=== PATIENT | female | born 1940 | race African-American/Black ===

== ENCOUNTER 2019-07-13 19:44 | Inpatient (IN) | payer MEDICAID, OTHER ==
[~2019-07-13] VITALS: Ht 162.6 cm; Wt 81.6 kg
[2019-07-13 20:36] LABS: BASOPHILS % 0.6 % (0.0-2.0); EOSINOPHILS % 4.1 % (0.0-5.0); HEMATOCRIT. 42.3 % (36.0-48.0); HEMOGLOBIN. 13.8 g/dL (12.0-16.0); LYMPHOCYTES % 36.7 % (20.0-50.0); MEAN CORPUSCULAR HEMOGLOBIN 27.5 pg (28.0-32.0); MEAN CORPUSCULAR VOLUME 84.1 fL (81.0-99.0); MEAN PLATELET VOLUME 9.2 fl (7.4-10.4); MONOCYTES % 6.5 % (2.0-8.0); NEUTROPHILS % 52.1 % (40.0-76.0); PLATELET 181 x1000/uL (130-400); RED BLOOD CELL COUNT 5.02 mill/uL (4.2-5.4); RED CELL DISTRIBUTION WIDTH 15.4 % (11.6-14.6)
[2019-07-13 20:39] LABS: CHLORIDE 107 mEq/L (98-107); PROTHROMBIN TIME 10.6 sec (9.6-11.0)
[2019-07-13 20:47] LABS: CLARITY URINE CLEAR (CLEAR); COLOR URINE YELLOW (YELLOW); KETONES URINE NEGATIVE (NEGATIVE); LEUKOCYTE ESTERASE URINE TRACE (NEGATIVE); NITRITE URINE NEGATIVE (NEGATIVE); OCCULT BLOOD URINE NEGATIVE (NEGATIVE); PH URINE 6.5 (4.5-8.0); PROTEIN URINE TRACE (NEGATIVE); SPECIFIC GRAVITY URINE 1.009 (1.005-1.030); UROBILINOGEN URINE 0.2 E.U./dL (0.2-1.0)
[2019-07-13 21:01] LABS: *AMPHETAMINES SCREEN URINE NEGATIVE (NEGATIVE); *BARBITURATES SCREEN URINE NEGATIVE (NEGATIVE); *BENZODIAZEPINES SCREEN URINE NEGATIVE (NEGATIVE); *COCAINE SCREEN URINE NEGATIVE (NEGATIVE); METHADONE URINE SCREEN NEGATIVE (NEGATIVE)
[2019-07-13 21:02] LABS: CANNABINOID URINE SCREEN NEGATIVE (NEGATIVE); OPIATES URINE SCREEN NEGATIVE (NEGATIVE); PHENCYCLIDINE URINE SCREEN NEGATIVE (NEGATIVE)
[2019-07-13] MEDS ORDERED: ENOXAPARIN 100MG/ML SYR SUBCUT ONE (22:15)
[2019-07-13] MEDS ORDERED: POTASSIUM CHLORIDE 20MEQ TABLET SR PO ONE (22:15)
[2019-07-13] MEDS ORDERED: ASPIRIN 81MG TABLET PO ONE (22:15)
[2019-07-14 09:15] VITALS: BP 136/73
[2019-07-14 10:43] VITALS: BP 136/79
[2019-07-14 12:00] VITALS: BP 126/53
[2019-07-14] MEDS ORDERED: LISINOPRIL 20MG TABLET PO SCH ×2 (12:00→15:00)
[2019-07-14] MEDS ORDERED: AMLODIPINE 5MG TABLET PO SCH ×3 (12:00→15:00)
[2019-07-14] MEDS ORDERED: CLONIDINE 0.1MG TABLET PO PRN (13:00)
[2019-07-14] MEDS ORDERED: IPRATROPIUM/ALBUTEROL 0.5-3(2.5)MG/3ML NEB NEB PRN (13:00)
[2019-07-14] MEDS ORDERED: ACETAMINOPHEN 650MG SUPP PR PRN (13:00)
[2019-07-14] MEDS ORDERED: MAGNESIUM/ALUMINUM HYDROXIDE/SIMETHICONE 30ML UDC PO PRN (13:00)
[2019-07-14] MEDS ORDERED: ACETAMINOPHEN 325MG TABLET PO PRN (13:00)
[2019-07-14] MEDS ORDERED: ONDANSETRON HCL 4MG/2ML INJ IV PRN (13:00)
[2019-07-14] MEDS ORDERED: HYDROCODONE/ACETAMINOPHEN 5/325MG TABLET PO PRN (13:00)
[2019-07-14] MEDS ORDERED: DIPHENHYDRAMINE 50MG/ML VIAL IV PRN (13:00)
[2019-07-14] MEDS ORDERED: NA PHOS,M-B/NA PHOS,DI-BA ENEMA 118ML PR PRN (13:00)
[2019-07-14] MEDS ORDERED: DOCUSATE SODIUM 100MG CAPSULE PO PRN (13:00)
[2019-07-14] MEDS ORDERED: LORAZEPAM 0.5MG TABLET PO PRN (13:00)
[2019-07-14] MEDS ORDERED: GUAIFENESIN 200MG/10ML SUGAR FREE UDC PO PRN (13:00)
[2019-07-14] MEDS ORDERED: POTASSIUM CHLORIDE 20MEQ TABLET SR PO SCH (13:45)
[2019-07-14] MEDS ORDERED: POTASSIUM CHLORIDE 20MEQ TABLET SR PO NR (14:30)
[2019-07-14 16:00] VITALS: BP 115/64
[2019-07-14] MEDS: LISINOPRIL 20MG TABLET PO SCH (16:07)
[2019-07-14] MEDS ORDERED: LISI-652 MT (17:18)
[2019-07-14] MEDS ORDERED: LIP40 MT (17:19)
[2019-07-14] MEDS ORDERED: AMLO5TAB4 MT (17:20)
[2019-07-14 17:44] LABS: CREATINE KINASE 270 IU/L (26-192)
[2019-07-14 17:45] LABS: CREATINE KINASE MB FRACTION 1.9 ng/mL (0.5-3.6)
[2019-07-14] MEDS: POTASSIUM CHLORIDE 20MEQ TABLET SR PO SCH ×3 (18:00→19:00)
[2019-07-14] MEDS: ENOXAPARIN 40MG/0.4ML SYR SUBCUT SCH (18:01)
[2019-07-14 18:21] LABS: BASOPHILS % 0.7 % (0.0-2.0); EOSINOPHILS % 4.2 % (0.0-5.0); HEMATOCRIT. 41.4 % (36.0-48.0); HEMOGLOBIN. 13.4 g/dL (12.0-16.0); LYMPHOCYTES % 23.6 % (20.0-50.0); MEAN CORPUSCULAR HEMOGLOBIN 27.7 pg (28.0-32.0); MEAN CORPUSCULAR VOLUME 85.2 fL (81.0-99.0); MEAN PLATELET VOLUME 9.8 fl (7.4-10.4); MONOCYTES % 8.9 % (2.0-8.0); NEUTROPHILS % 62.6 % (40.0-76.0); PLATELET 174 x1000/uL (130-400); RED BLOOD CELL COUNT 4.86 mill/uL (4.2-5.4); RED CELL DISTRIBUTION WIDTH 15.5 % (11.6-14.6)
[2019-07-14 18:34] LABS: CHLORIDE 110 mEq/L (98-107)
[2019-07-14 18:41] LABS: T4 FREE 1.14 ng/dL (0.76-1.46)
[2019-07-14 20:00] VITALS: BP 135/88
[2019-07-14] MEDS ORDERED: FAMOTIDINE 20MG TABLET PO SCH (21:00)
[2019-07-14] MEDS ORDERED: ATORVASTATIN CALCIUM 40MG TABLET PO SCH (21:00)
[2019-07-15] VITALS: BP 134/68
[2019-07-15 00:21] LABS: CREATINE KINASE 240 IU/L (26-192); CREATINE KINASE MB FRACTION 1.6 ng/mL (0.5-3.6)
[2019-07-15 04:00] VITALS: BP 118/63
[2019-07-15 08:08] LABS: BASOPHILS % 0.5 % (0.0-2.0); EOSINOPHILS % 4.3 % (0.0-5.0); HEMATOCRIT. 37.7 % (36.0-48.0); HEMOGLOBIN. 12.5 g/dL (12.0-16.0); LYMPHOCYTES % 31.2 % (20.0-50.0); MEAN CORPUSCULAR HEMOGLOBIN 27.9 pg (28.0-32.0); MEAN CORPUSCULAR VOLUME 83.9 fL (81.0-99.0); MEAN PLATELET VOLUME 9.8 fl (7.4-10.4); MONOCYTES % 9.3 % (2.0-8.0); NEUTROPHILS % 54.7 % (40.0-76.0); PLATELET 178 x1000/uL (130-400); RED BLOOD CELL COUNT 4.49 mill/uL (4.2-5.4); RED CELL DISTRIBUTION WIDTH 15.4 % (11.6-14.6)
[2019-07-15 08:19] LABS: CHLORIDE 111 mEq/L (98-107)
[2019-07-15 08:30] LABS: LDL CHOLESTEROL 109 mg/dL (5-100)
[2019-07-15 08:32] LABS: TOTAL IRON BINDING CAPACITY 265 ug/dL (250-450)
[2019-07-15 08:34] LABS: HDL CHOLESTEROL 67 mg/dL (40-59)
[2019-07-15 08:35] LABS: T4 FREE 1.04 ng/dL (0.76-1.46)
[2019-07-15 08:51] LABS: VITAMIN B12 SERUM 471 pg/mL (211-911)
[2019-07-15] MEDS ORDERED: ASPIRIN 81MG EC TABLET PO SCH (09:00)
[2019-07-15] MEDS: LISINOPRIL 20MG TABLET PO SCH (09:56)
[2019-07-15] MEDS: ENOXAPARIN 40MG/0.4ML SYR SUBCUT SCH (09:57)
[2019-07-15] MEDS ORDERED: DILT120C88 MT (14:50)
[2019-07-15] MEDS ORDERED: ASPI-1497 MT (14:50)
[2019-07-15] MEDS ORDERED: LIP40 MT (14:50)
[2019-07-15] MEDS ORDERED: BLOO1KIT74 TP (14:50)
[2019-07-15] MEDS ORDERED: DILTIAZEM HCL 120MG CAPSULE CD 24HR PO SCH (17:00)
[2019-07-15 17:38] VITALS: BP 149/67
== END 2019-07-15 18:38 | disposition home or self-care (01) | DRG 69 ==
LOC: ER 19:44 → 5WST 22:33 → EDBEDREQ 23:04 → ENRESERV 07-14 07:51
PROVIDERS: ADMIT Internal Medicine; ATTEND Internal Medicine
DX: G45.9 Transient cerebral ischemic attack, unspecified (principal); I48.91 Unspecified atrial fibrillation; E78.5 Hyperlipidemia, unspecified; E87.6 Hypokalemia; I10 Essential (primary) hypertension; E66.01 Morbid (severe) obesity due to excess calories; E78.00 Pure hypercholesterolemia, unspecified; J45.909 Unspecified asthma, uncomplicated; Z90.710 Acquired absence of both cervix and uterus; Z79.899 Other long term (current) drug therapy; Z88.1 Allergy status to other antibiotic agents; Z88.8 Allergy status to other drugs, medicaments and biological substances; Z79.01 Long term (current) use of anticoagulants; Z68.30 Body mass index [BMI] 30.0-30.9, adult; R73.9 Hyperglycemia, unspecified
CPT/HCPCS: 36415; 70551; 71045; 80053; 80061; 80305; 81003; 82550; 82553; 82607; 83036; 83540; 83550; 83735; 84439; 84443; 84484; 85025; 93005; 93306; 93880; 93970; 97162; 97535; 99291; J1650